=== PATIENT | female | born 1985 | race American Indian/Alaskan Native ===

== ENCOUNTER 2017-09-13 15:04 | Emergency (ER) | payer SELFPAY ==
[2017-09-13] MEDS ORDERED: LIDOCAINE VISCOUS 2% PO ONE (21:42)
[2017-09-13] MEDS ORDERED: NACL 0.9% 1000 ML 1,000 ML IV ONE (21:50)
[2017-09-13] MEDS ORDERED: TORADOL IM ONE (21:50)
[2017-09-13] MEDS ORDERED: CLEOCIN 600 MG/50 mL 600 MG/50 ML BAG IV ONE ×2 (21:50→21:51)
[2017-09-13] MEDS ORDERED: DECADRON IV ONE (21:51)
[2017-09-13 22:27] LABS: Hematocrit 37.5 % (30.3-42.9); Hemoglobin 12.9 gm/dl (10.1-14.3); Mean Corpuscular HGB Conc 34 % (30-34); Mean Corpuscular Hemoglobin 32 pg (28-32); Mean Corpuscular Volume 94 fl (79-97); Platelet Count 345 K/mm3 (140-440); Red Blood Count 3.98 M/mm3 (3.65-5.03); Red Cell Distribution Width 12.8 % (13.2-15.2)
--- NOTE | 2017-09-13 22:29 | Emergency Department Report ---
ED ENT HPI - General Chief complaint: Sore Throat Stated complaint: SORETHROAT, EAR PAIN, DIFF SWALLOWING Time Seen by Provider: 09/13/17 21:41 Source: patient Mode of arrival: Ambulatory Limitations: No Limitations - History of Present Illness Initial comments: This is a 32-year-old female nontoxic, well nourished in appearance, no acute signs of distress presents to the ED with c/o of sore throat x3 days. Patient stated that now she developed right sided swelling of neck. Patient also stated has been having excessive saliva. Patient denies any hoarseness, fever, chills, nausea, vomiting, chest pain, shortness of breath, difficulty swallowing , difficulty breathing, headache, stiff neck. Patient denies any allergies or past medical history. MD complaint: sore throat -: days(s) (3) Location: throat Severity: mild Severity scale (0 -10): 8 Quality: aching Consistency: constant Improves with: none Worsens with: swallowing Associated Symptoms: pain with swallowing, sore throat. denies: fever, cough, gum swelling, toothache, tinnitus, hearing loss, discharge from ear, rhinorrhea - Related Data Previous Rx's Medication Instructions Recorded Last Taken Type Cyclobenzaprine HCl [Flexeril 5 MG 5 mg PO TID #20 tab 06/07/16 Unknown Rx TAB] Ibuprofen [Motrin 600 MG tab] 600 mg PO Q8H PRN #30 tablet 06/07/16 Unknown Rx Clindamycin [Clindamycin CAP] 300 mg PO Q8H 7 Days cap 09/14/17 Unknown Rx Ibuprofen [Motrin] 600 mg PO Q8H PRN #30 tablet 09/14/17 Unknown Rx Nystas/Diphen/Xyl Visc/Mylanta 30 ml MM Q4H PRN 10 Days ml 09/14/17 Unknown Rx [Magic Mouthwash] predniSONE [Deltasone] 40 mg PO QDAY 5 Days tab 09/14/17 Unknown Rx Allergies Allergy/AdvReac Type Severity Reaction Status Date / Time No Known Allergies Allergy Verified 10/24/14 09:41 ED Dental HPI - General Chief complaint: Sore Throat Stated complaint: SORETHROAT, EAR PAIN, DIFF SWALLOWING Time Seen by Provider: 09/13/17 21:41 Source: patient Mode of arrival: Ambulatory Limitations: No Limitations - Related Data Previous Rx's Medication Instructions Recorded Last Taken Type Cyclobenzaprine HCl [Flexeril 5 MG 5 mg PO TID #20 tab 06/07/16 Unknown Rx TAB] Ibuprofen [Motrin 600 MG tab] 600 mg PO Q8H PRN #30 tablet 06/07/16 Unknown Rx Clindamycin [Clindamycin CAP] 300 mg PO Q8H 7 Days cap 09/14/17 Unknown Rx Ibuprofen [Motrin] 600 mg PO Q8H PRN #30 tablet 09/14/17 Unknown Rx Nystas/Diphen/Xyl Visc/Mylanta 30 ml MM Q4H PRN 10 Days ml 09/14/17 Unknown Rx [Magic Mouthwash] predniSONE [Deltasone] 40 mg PO QDAY 5 Days tab 09/14/17 Unknown Rx Allergies Allergy/AdvReac Type Severity Reaction Status Date / Time No Known Allergies Allergy Verified 10/24/14 09:41 ED Review of Systems ROS: Stated complaint: SORETHROAT, EAR PAIN, DIFF SWALLOWING Other details as noted in HPI Constitutional: denies: chills, fever Eyes: denies: eye pain, eye discharge, vision change ENT: throat pain. denies: ear pain Respiratory: denies: cough, shortness of breath, wheezing Cardiovascular: denies: chest pain, palpitations Endocrine: no symptoms reported Gastrointestinal: denies: abdominal pain, nausea, diarrhea Genitourinary: denies: urgency, dysuria, discharge Musculoskeletal: denies: back pain, joint swelling, arthralgia Skin: denies: rash, lesions Neurological: denies: headache, weakness, paresthesias Psychiatric: denies: anxiety, depression Hematological/Lymphatic: denies: easy bleeding, easy bruising ED Past Medical Hx - Past Medical History Hx Hypertension: No Hx Congestive Heart Failure: No Hx Diabetes: No Hx Deep Vein Thrombosis: No Hx Renal Disease: No Hx Sickle Cell Disease: No Hx Seizures: No Hx Asthma: No Hx COPD: No Hx HIV: No Additional medical history: vaginal delivery 03-29-2014 - Surgical History Additional Surgical History: Fallopian Tube Left Side Removal. - Social History Smoking Status: Never Smoker Substance Use Type: None - Medications Home Medications: Home Medications Medication Instructions Recorded Confirmed Last Taken Type Cyclobenzaprine HCl [Flexeril 5 MG 5 mg PO TID #20 tab 06/07/16 Unknown Rx TAB] Ibuprofen [Motrin 600 MG tab] 600 mg PO Q8H PRN #30 tablet 06/07/16 Unknown Rx Clindamycin [Clindamycin CAP] 300 mg PO Q8H 7 Days cap 09/14/17 Unknown Rx Ibuprofen [Motrin] 600 mg PO Q8H PRN #30 tablet 09/14/17 Unknown Rx Nystas/Diphen/Xyl Visc/Mylanta 30 ml MM Q4H PRN 10 Days ml 09/14/17 Unknown Rx [Magic Mouthwash] predniSONE [Deltasone] 40 mg PO QDAY 5 Days tab 09/14/17 Unknown Rx ED Physical Exam - General Limitations: No Limitations General appearance: alert, in no apparent distress - Head Head exam: Present: atraumatic, normocephalic, normal inspection - Eye Eye exam: Present: normal appearance, PERRL, EOMI. Absent: scleral icterus, conjunctival injection, nystagmus, periorbital swelling, periorbital tenderness Pupils: Present: normal accommodation - ENT ENT exam: Present: mucous membranes moist, TM's normal bilaterally, normal external ear exam - Expanded ENT Exam Expanded Ear exam: Present: normal external inspection Mouth exam: Present: normal external inspection, tongue normal. Absent: drooling, trismus, muffled voice, tongue elevation, laceration Teeth exam: Present: normal inspection Throat exam: Positive: tonsillar erythema, tonsillomegaly (3+), tonsillar exudate, other (Uvula midline. ). Negative: R peritonsillar mass, L peritonsillar mass - Neck Neck exam: Present: normal inspection, full ROM, lymphadenopathy (right tonsilar lymphadenopathy). Absent: tenderness, meningismus, thyromegaly - Respiratory Respiratory exam: Present: normal lung sounds bilaterally. Absent: respiratory distress, wheezes, rales, rhonchi, stridor, chest wall tenderness, accessory muscle use, decreased breath sounds, prolonged expiratory - Cardiovascular Cardiovascular Exam: Present: regular rate, normal rhythm, normal heart sounds. Absent: irregular rhythm, systolic murmur, diastolic murmur, rubs, gallop - GI/Abdominal GI/Abdominal exam: Present: soft, normal bowel sounds. Absent: distended, tenderness, guarding, rebound, rigid, diminished bowel sounds - Rectal Rectal exam: Present: deferred - Extremities Exam Extremities exam: Present: normal inspection, full ROM, normal capillary refill. Absent: tenderness, pedal edema, joint swelling, calf tenderness - Back Exam Back exam: Present: normal inspection, full ROM. Absent: tenderness, CVA tenderness (R), CVA tenderness (L), muscle spasm, paraspinal tenderness, vertebral tenderness, rash noted - Neurological Exam Neurological exam: Present: alert, oriented X3, CN II-XII intact, normal gait, reflexes normal - Psychiatric Psychiatric exam: Present: normal affect, normal mood - Skin Skin exam: Present: warm, dry, intact, normal color. Absent: rash ED Course Vital Signs 09/13/17 09/13/17 09/14/17 20:51 20:59 01:33 Temperature 98.1 F 98.1 F 98.7 F Pulse Rate 94 H 94 H 87 Respiratory 18 20 Rate Blood Pressure 129/70 Blood Pressure 129/70 132/82 [Right] O2 Sat by Pulse 100 99 100 Oximetry - Reevaluation(s) Reevaluation #1: 09/13/17 22:29 Patient is speaking in full sentences with no signs of distress noted. Reevaluation #2: 09/14/17 01:25 Patient stated is feeling much better and patient tolerated PO challange well with no signs of distress. - Consultations Consultation #1: 09/14/17 01:24 Dr. Winters has been consulted about patient history, phyiscal exam, and labs/ imaging findings and agrees to the discharge plan of care with follow-up. ED Medical Decision Making - Lab Data Result diagrams: 09/13/17 22:05 09/13/17 22:05 - Medical Decision Making This is a 32-year-old female that presents with tonsillitis with exudate and hypokalemia. Patient is stable and was examined by me. Labs obtained were within normal limits with low potassium gap of 25. As per Dr. Winters, which has been consulted about patient history, phyiscal exam, and labs/imaging findings and agrees to the discharge plan of care with follow-up. CT of neck with contrast has been obtained to rule out tonsillar abscess and dictated by radiologist with impression of diffuse inflammatory changes in the right tonsillar region. No evidence of airway compromise and lymphadenopathy. Patient is notified of CT results with no present noted by the patient. Patient received clindamycin 600 mg IV, 1 L of normal saline, and 10 mg of Decadron IV. Patient stated she feels much better. A by mouth challenge has been obtained and patient tolerated well with no signs of any distress. Patient is discharged with clindamycin and prednisone. Patient received 20 meq potassium chloride in the ED. Patient was instructed Follow-up with a primary care doctor in 24 hours or if symptoms worsen and continue return to emergency room as soon as possible. At time time of discharge, the patient does not seem toxic or ill in appearance. No acute signs of distress noted. Patient agrees to discharge treatment plan of care. No further questions noted by the patient. Critical care attestation.: If time is entered above; I have spent that time in minutes in the direct care of this critically ill patient, excluding procedure time. ED Disposition Clinical Impression: Tonsillitis with exudate, Hypokalemia Disposition: TO HOME OR SELFCARE Is pt being admited?: No Does the pt Need Aspirin: No Condition: Stable Instructions: Clindamycin (By mouth), Hypokalemia (ED), Tonsillitis (ED), Prednisone (By mouth) Additional Instructions: Follow-up with a primary care doctor in 24 hours or if symptoms worsen and continue return to emergency room as soon as possible. Prescriptions: Clindamycin [Clindamycin CAP] 300 mg PO Q8H 7 Days cap Ibuprofen [Motrin] 600 mg PO Q8H PRN #30 tablet PRN Reason: Pain Nystas/Diphen/Xyl Visc/Mylanta [Magic Mouthwash] 30 ml MM Q4H PRN 10 Days ml PRN Reason: Sore Throat predniSONE [Deltasone] 40 mg PO QDAY 5 Days tab Referrals: [facility] [Outside] - 3-5 Days [facility] [Outside] - 3-5 Days PRIMARY CAREMD [Primary Care Provider] - 24 Hours LOIDA MCGEE MD [Staff Physician] - 24 Hours Forms: Work/School Release Form(ED)
[2017-09-13 22:51] LABS: BUN/Creatinine Ratio 12; Blood Urea Nitrogen 6 mg/dL (7-17); Hemolysis Index 3
[2017-09-13 22:52] LABS: Eosinophils % (Manual) 0 % (0.0-4.3); Total Cells Counted 100
[2017-09-13 22:53] LABS: Basophils % (Manual) 0 % (0.0-1.8)
[2017-09-13 22:54] LABS: RBC Morphology Normal
[2017-09-13] MEDS ORDERED: POTASSIUM CHLORIDE PO ONE (23:13)
[2017-09-13 23:42] LABS: Bacteria,Urine 1+ /HPF (Negative); Bilirubin,Urine SM (Negative); Blood,Urine NEG (Negative); Color,Urine Amber (Yellow); Hyaline Casts,Urine 1 /LPF; Mucus,Urine FEW /HPF; Nitrite,Urine NEG (Negative)
[2017-09-14 00:02] LABS: Ictotest,Urine Negative (Negative)
--- NOTE | 2017-09-14 00:41 | Cat Scan Report ---
FINAL REPORT EXAM: CT NECK W CON HISTORY: tonsillitis r/u tonsilar abscess rt side throat pain/swallowing TECHNIQUE: Routine axial imaging was obtained of the soft tissues of the neck following the intravenous injection of 100 cc of Omnipaque 300. Sagittal and coronal reconstructions were reviewed. FINDINGS: There are diffuse inflammatory changes involving the right tonsillar pillar with heterogeneous enhancement measuring 2.3 cm x 1.7 cm. The inflammatory process extends 4.2 cm cephalad caudally with face mid of the right piriform sinus. The low-attenuation areas represent phlegmonous changes. A discrete walled-off abscess is not seen. There is no evidence of airway compromise. There are enlarged lymph nodes in both internal jugular chains the largest on the right side measuring 2.6 cm x 1.6 cm in axial dimension. Benign-appearing shoddy lymph nodes are seen in the spinal accessory and submandibular chains bilaterally. The vascular structures enhance normally. The thyroid gland appears normal. The retropharyngeal space is unremarkable. Lung apices are clear. The skeletal structures reveal disc degeneration at the C5-C6 level. Along the skullbase the visualized sinuses are clear. The mastoid air cells are well pneumatized. IMPRESSION: Diffuse inflammatory changes with phlegmonous changes involving the right tonsil measuring 2.3 cm x 1.7 cm x 4.2 cm as described. No evidence of airway compromise. Lymphadenopathy as described. Degenerative arthritic changes at the C5-6 level in the cervical spine
[2017-09-14 01:33] VITALS: BP 132/82
== END 2017-09-14 01:37 | disposition home or self-care (01) ==
LOC: ED 15:04
DX: J03.90 Acute tonsillitis, unspecified (principal); E87.6 Hypokalemia
CPT/HCPCS: 36415; 70491; 80048; 81001; 82140; 82550; 84703; 85007; 85025; 87040; 87116; 87430; 96361; 96365; 96372; 96375; 99284; J1100; J1885; J7030; Q9967

== ENCOUNTER 2020-01-08 12:18 | Emergency (ER) | payer SELFPAY ==
[2020-01-08 12:23] VITALS: BP 139/83
[2020-01-08] MEDS ORDERED: PENICILLIN G BENZATHINE 1.2 MILLION UNIT/2 ML INJ IM ONE (13:51)
[2020-01-08] MEDS ORDERED: dexAMETHasone 4 MG/ML VIAL IM ONE (13:51)
--- NOTE | 2020-01-08 13:51 | Emergency Department Report ---
Minor Respiratory - HPI Chief Complaint: Sore Throat Stated Complaint: POSS STREP THROAT/MUCUS/PAIN Time Seen by Provider: 01/08/20 13:50 Duration: 4 Days Pain Location: Throat Severity: moderate Minor Respiratory: Yes Sore Throat, Yes Able to Tolerate Fluids, Yes Ear Pain, No Rhinorrhea, No Cough, No Sick Contacts, No Hemoptysis, No Chest Pain, No Shortness of Breath, No Fever Other History: Patient is a 34-year-old -[place] female comes to the ER today with a sore throat. She has exudates bilaterally. There is no abscess. She is controlling secretions. She states that the pain starts in her throat and radiates to her ear. Patient has no fever. She denies chills. She denies cough. She denies shortness of breath. She has no known ill contacts. Ambulatory and comes to the ER via private vehicle ED Review of Systems ROS: Stated complaint: POSS STREP THROAT/MUCUS/PAIN Other details as noted in HPI Comment: All other systems reviewed and negative ED Past Medical Hx - Past Medical History Hx Hypertension: No Hx Congestive Heart Failure: No Hx Diabetes: No Hx Deep Vein Thrombosis: No Hx Renal Disease: No Hx Sickle Cell Disease: No Hx Seizures: No Hx Asthma: No Hx COPD: No Hx HIV: No Additional medical history: vaginal delivery 03-29-2014 - Surgical History Additional Surgical History: Fallopian Tube Left Side Removal. - Family History Family history: no significant - Social History Smoking Status: Current Every Day Smoker Substance Use Type: None - Medications Home Medications: Home Medications Medication Instructions Recorded Confirmed Last Taken Type Amoxicillin [Trimox CAP] 500 mg PO TID #20 capsule 01/08/20 Unknown Rx Minor Respiratory Exam - Exam General: Vital signs noted. No distress. Alert and acting appropriately. HEENT: Yes Pharyngeal Erythema, Yes Moist Mucous Membranes, No Pharyngeal Exudates, No Rhinorrhea, No Conjuctival Injection, No Frontal Tenderness, No Maxillary Tenderness Ear: Neither TM Bulge, Neither TM Erythema, Neither EAC Pain, Neither EAC Discharge Neck: Yes Supple, No Adenopathy Lungs: Yes Good Air Exchange, No Wheezes, No Ronchi, No Stridor, No Cough, No Labored Respirations, No Retractions, No Use of Accessory Muscles, No Other Abnormal Lung Sounds Heart: Yes Regular (90 on exam), No Murmur Abdomen: Yes Normal Bowel Sounds, No Tenderness, No Peritoneal Signs Skin: No Rash, No Edema Neurologic: Alert and oriented, no deficits. Musculoskeletal: Unremarkable. ED Course Vital Signs 01/08/20 12:22 Temperature 98.3 F Pulse Rate 117 H Respiratory 18 Rate Blood Pressure 139/83 O2 Sat by Pulse 97 Oximetry ED Medical Decision Making - Medical Decision Making Vital Signs 01/08/20 12:22 Temperature 98.3 F Pulse Rate 117 H Respiratory 18 Rate Blood Pressure 139/83 O2 Sat by Pulse 97 Oximetry Lab Results 01/08/20 Range/Units Unknown Group A Strep Rapid Positive A (Negative) Strep noted to be positive. Patient given Bicillin and Decadron in the ER. Patient being discharged home with PCP follow-up. Patient verbalizes understanding of the need to follow-up. On discharge patient controlling secretions, ABCs intact, and patient taking p.o. - Differential Diagnosis ro strep Critical care attestation.: If time is entered above; I have spent that time in minutes in the direct care of this critically ill patient, excluding procedure time. ED Disposition Clinical Impression: Strep pharyngitis Disposition: - TO HOME OR SELFCARE Is pt being admited?: No Does the pt Need Aspirin: No Condition: Stable Instructions: Strep Throat (ED) Additional Instructions: med as ordered today follow up with pcp for recheck in 48 hours stay well hydrated motrin or tylenol for pain or fever good handwashing Prescriptions: Amoxicillin [Trimox CAP] 500 mg PO TID #20 capsule Referrals: HERVE PIERRE MD [Staff Physician] - 3-5 Days Time of Disposition: 14:17
[2020-01-08] MEDS ORDERED: ACETAMINOPHEN 500 MG TAB PO ONE (13:56)
== END 2020-01-08 14:58 | disposition home or self-care (01) ==
LOC: ED 12:18
DX: J02.0 Streptococcal pharyngitis (principal); F17.200 Nicotine dependence, unspecified, uncomplicated; Z98.890 Other specified postprocedural states; Z79.2 Long term (current) use of antibiotics
CPT/HCPCS: 87430; 96372; 99283; J0561; J1100

== ENCOUNTER 2020-04-26 15:12 | Emergency (ER) | payer MEDICAID, OTHER ==
[2020-04-26 16:27] VITALS: BP 109/70
[2020-04-26] MEDS ORDERED: dexAMETHasone 20 MG/5 ML VIAL IM ONE (17:05)
--- NOTE | 2020-04-26 17:05 | Event Note ---
ED Screening Note Date of service: 04/26/20 Time: 17:03 ED Screening Note: 34-year-old female presents with throat pain with difficulty swallowing stating that every time she eats she is throwing up her foods. This initial assessment/diagnostic orders/clinical plan/treatment(s) is/are subject to change based on patients health status, clinical progression and re- assessment by fellow clinical providers in the ED. Further treatment and workup at subsequent clinical providers discretion. Patient/guardian urged not to elope from the ED as their condition may be serious if not clinically assessed and managed. Initial orders include: Decadron IM, rapid strep sent Magic mouthwash
[2020-04-26] MEDS ORDERED: MAGIC MOUTHWASH 30ML PO ONE (17:06)
--- NOTE | 2020-04-26 19:35 | Emergency Department Report ---
ED General Adult HPI - General Chief complaint: Sore Throat Stated complaint: SORE THROAT/V/N/STOPPED UP NOSE Time Seen by Provider: 04/26/20 17:03 Source: patient Mode of arrival: Ambulatory Limitations: No Limitations - History of Present Illness Initial comments: 34-year-old -[place] female patient without significant prior medical history presents with complaints of sore throat, nasal congestion, and nausea and vomiting x2 days. She rates her current sore throat as a 10/10 in severity and states she is unable to tolerate foods and is vomiting due to the pain. She denies any abdominal pain, cough, shortness of breath, chest pain, rash/lesions, or recent known sick contacts. Patient was seen here 01/08/2020 with similar symptoms and has strep at that time. She states her symptoms feel the same as before. -: Sudden Severity scale (0 -10): 10 - Related Data Previous Rx's Medication Instructions Recorded Last Taken Type Amoxicillin [Trimox CAP] 500 mg PO TID #20 capsule 01/08/20 Unknown Rx Azithromycin Oral Liqd [Zithromax 250 mg PO QDAY 5 Days #1 bottle 04/26/20 Unknown Rx 200 MG/5 ML ORAL LIQ] Ibuprofen Oral Liqd [Motrin Oral 600 mg PO TID PRN #1 bottle 04/26/20 Unknown Rx Liq 100 mg/5 ml] Loratadine [Claritin] 10 mg PO QAM PRN #1 bottle 04/26/20 Unknown Rx Allergies Allergy/AdvReac Type Severity Reaction Status Date / Time Unable to Assess Allergy Unverified 04/26/20 16:24 ED Review of Systems ROS: Stated complaint: SORE THROAT/V/N/STOPPED UP NOSE Other details as noted in HPI Constitutional: denies: chills, diaphoresis, fever, malaise, weakness Eyes: denies: eye pain, eye discharge, vision change ENT: throat pain. denies: ear pain Respiratory: denies: cough, shortness of breath Cardiovascular: denies: chest pain Gastrointestinal: vomiting. denies: abdominal pain, nausea, diarrhea, constipation, hematemesis, melena, hematochezia Genitourinary: denies: urgency, dysuria Skin: denies: rash, lesions, change in color Neurological: denies: headache Hematological/Lymphatic: swollen glands ED Past Medical Hx - Past Medical History Hx Hypertension: No Hx Congestive Heart Failure: No Hx Diabetes: No Hx Deep Vein Thrombosis: No Hx Renal Disease: No Hx Sickle Cell Disease: No Hx Seizures: No Hx Asthma: No Hx COPD: No Hx HIV: No Additional medical history: vaginal delivery 03-29-2014 - Surgical History Additional Surgical History: Fallopian Tube Left Side Removal. - Social History Smoking Status: Never Smoker Substance Use Type: None - Medications Home Medications: Home Medications Medication Instructions Recorded Confirmed Last Taken Type Amoxicillin [Trimox CAP] 500 mg PO TID #20 capsule 01/08/20 Unknown Rx Azithromycin Oral Liqd [Zithromax 250 mg PO QDAY 5 Days #1 bottle 04/26/20 Unknown Rx 200 MG/5 ML ORAL LIQ] Ibuprofen Oral Liqd [Motrin Oral 600 mg PO TID PRN #1 bottle 04/26/20 Unknown Rx Liq 100 mg/5 ml] Loratadine [Claritin] 10 mg PO QAM PRN #1 bottle 04/26/20 Unknown Rx ED Physical Exam - General Limitations: No Limitations General appearance: alert, in no apparent distress - Head Head exam: Present: atraumatic, normocephalic - Eye Eye exam: Present: normal appearance. Absent: scleral icterus - Expanded ENT Exam Expanded Mouth exam: Absent: drooling, trismus, muffled voice Throat exam: Positive: tonsillar erythema. Negative: tonsillomegaly, tonsillar exudate - Neck Neck exam: Present: full ROM, lymphadenopathy (Mild tender anterior cervical lymphadenopathy noted). Absent: meningismus - Respiratory Respiratory exam: Present: normal lung sounds bilaterally. Absent: respiratory distress - Cardiovascular Cardiovascular Exam: Present: regular rate - GI/Abdominal GI/Abdominal exam: Present: soft, normal bowel sounds. Absent: distended, tenderness, guarding, rebound, rigid - Neurological Exam Neurological exam: Present: alert, oriented X3 - Psychiatric Psychiatric exam: Present: normal affect, normal mood - Skin Skin exam: Present: warm, dry, intact, normal color. Absent: rash, cyanosis, diaphoretic, petechiae, pallor, ecchymosis ED Course Vital Signs 04/26/20 16:24 Temperature 98.1 F Pulse Rate 90 Respiratory 16 Rate Blood Pressure 109/70 [Right] O2 Sat by Pulse 96 Oximetry ED Medical Decision Making - Lab Data Lab Results 04/26/20 Range/Units 17:06 Group A Strep Rapid Negative (Negative) - Radiology Data Patient here with sore throat x2 days. Rapid strep is negative. On exam she has bilateral tonsillar erythema and on 01/08/2020 she was seen here and had a positive strep at that time. Patient states symptoms are the same as before. No trismus, drooling, or palpitated voice noted. Given this, will treat empirically for strep pharyngitis. Patient states Amoxil did not seem to work very effectively last time, will send home with azithromycin. Recommend follow- up with PCP in 3 to 5 days. Discussed in great details strict return precautions with patient, she verbalizes understanding. Her vitals are normal, she is well-appearing, and stable for discharge home peer Critical care attestation.: If time is entered above; I have spent that time in minutes in the direct care of this critically ill patient, excluding procedure time. ED Disposition Clinical Impression: Acute bacterial pharyngitis Disposition: - TO HOME OR SELFCARE Is pt being admited?: No Condition: Stable Instructions: Strep Throat (ED) Prescriptions: Loratadine [Claritin] 10 mg PO QAM PRN #1 bottle PRN Reason: Nasal Congestion Ibuprofen Oral Liqd [Motrin Oral Liq 100 mg/5 ml] 600 mg PO TID PRN #1 bottle PRN Reason: pain Azithromycin Oral Liqd [Zithromax 200 MG/5 ML ORAL LIQ] 250 mg PO QDAY 5 Days #1 bottle Referrals: JENNI SALAS [Other] - 3-5 Days
[2020-04-26] MEDS ORDERED: IBUPROFEN ORAL LIQD 100 MG/5 ML ORAL.LIQD PO ONE (19:38)
[2020-04-26] MEDS ORDERED: ONDANSETRON 4 MG ODT TAB PO ONE (20:01)
== END 2020-04-26 20:05 | disposition home or self-care (01) ==
LOC: ED 15:12
DX: J02.8 Acute pharyngitis due to other specified organisms (principal); Z79.899 Other long term (current) drug therapy; Z90.79 Acquired absence of other genital organ(s)
CPT/HCPCS: 87116; 87430; 96372; 99283; J1100; Q0162

== ENCOUNTER 2020-12-01 11:54 | Emergency (ER) | payer OTHER ==
[2020-12-01 12:12] VITALS: BP 110/66
--- NOTE | 2020-12-01 12:53 | Emergency Department Report ---
Chief Complaint: Upper Respiratory Infection Stated Complaint: VOMITING/WHEEZING/SORE THROAT Time Seen by Provider: 12/01/20 12:50 - HPI History of Present Illness: 35-year-old immunocompetent female patient presents to the emergency department with complaints of nonproductive cough, nasal congestion, sneezing, and sore throat for 3 days. No known sick contacts. No current steroid antibiotic use. No recent travel. She has been taking [id number] Robitussin with limited relief. Denies fever, chills, headache, shortness of breath, chest pain, abdominal pain, neck stiffness, rash. Denies all other complaints at this time. - ROS Review of Systems: GENERAL: Negative for fever. ENT: Positive for nasal congestion, sneezing, sore throat. CARDIOVASCULAR: Negative for chest pain. PULMONARY: Positive for cough. GASTROINTESTINAL: Negative for abdominal pain. MUSCULOSKELETAL: Negative for back pain. NEUROLOGICAL: Negative for headache. INTEGUMENTARY: Negative for rash. - Exam Vital Signs: Vital Signs 12/01/20 12:09 Temperature 98.8 F Pulse Rate 93 H Respiratory 16 Rate Blood Pressure 110/66 O2 Sat by Pulse 98 Oximetry Physical Exam: General: Awake and alert. No acute distress. Head: Atraumatic, normocephalic. Eyes: EOMI. Pupils are equal and round. Normal sclera and conjunctiva. ENT: Clear rhinorrhea. Oral mucosa is moist. Normal pharyngeal exam. Neck: Supple. No lymphadenopathy. Pulmonary: No respiratory distress. Clear to auscultation bilaterally. Cardiac: Regular rate and rhythm. Pulses are palpable and equal bilaterally. No lower extremity cyanosis or edema. Skin: Warm and dry. No rashes. Abdomen: Soft, non-tender, non-protuberant. No guarding, rigidity, or rebound. Bowel sounds are normal. No organomegaly or masses noted. Back: Normal alignment. No CVA tenderness. Extremities: Symmetrical. Full range of motion intact. Neurological: Alert and oriented, appropriately interactive, no focal deficits. Psych: Cooperative. Appropriate mood and affect. Speech is evenly metered. Thoughts are logically construed. MSE screening note: Focused history and physical exam performed. Due to findings the following was ordered: ED Medical Decision Making - Medical Decision Making Patient presents emergency department with complaints of cough, nasal congestion, sneezing, sore throat. She is afebrile. Vital signs are stable. No respiratory distress, no hypoxia. History and exam findings are most suggestive of common cold. No clinical indication for further work-up on an emergent basis at this time. Patient will be discharged home with symptomatic treatment and referred to local primary care provider for close outpatient follow-up. Patient expressed understanding and is agreeable to plan of care. Disease transmission precautions discussed. Strict return precautions provided. History, exam, diagnostic testing, and current condition do not suggest worrisome pathology to warrant further testing, continued ED treatment, admission, or surgical evaluation at this point. Given the low probability of a significant medical illness, it would be more likely to result in harm than benefit to perform further testing at this stage. Discussed findings, presumptive diagnosis, need for follow-up and specific signs/symptoms that should prompt immediate return to the emergency department. Instructions were explained in detail to the patient in addition to giving written discharge information. Patient expressed understanding and was given the opportunity to ask questions, all of which were satisfactorily answered prior to discharge home. ED Disposition for MSE Clinical Impression: Acute nasopharyngitis Disposition: MED SCREENING EXAM-LEFT Is pt being admited?: No Does the pt Need Aspirin: No Condition: Stable Instructions: Upper Respiratory Infection, Adult Additional Instructions: Take Bromfed as directed for cough/cold symptoms. Honey is an excellent natural cough suppressant. Rest. Drink plenty fluids. Wash hands frequently to prevent disease transmission. Do not share food or drinks with others. Follow-up with Dr. Santamaria, primary care provider, this week. Call tomorrow to schedule an appointment. Return to the emergency department immediately for new or worsening symptoms. Prescriptions: Brompheniramine/Pseudoephed/Dm [Bromfed Dm Cough Syrup] 10 ml PO Q6H #1 bottle Referrals: HERVE SANTAMARIA MD [Staff Physician] - 3-5 Days Time of Disposition: 12:53
== END 2020-12-01 13:00 | disposition left against medical advice (07) ==
LOC: ED 11:54
DX: J02.9 Acute pharyngitis, unspecified (principal); Z53.21 Procedure and treatment not carried out due to patient leaving prior to being seen by health care provider

== ENCOUNTER 2021-02-26 19:26 | Emergency (ER) | payer OTHER ==
[2021-02-26 19:44] VITALS: BP 109/70
[2021-02-26] MEDS ORDERED: HYDROcodone/ACETAMINOPHEN 5-325 MG TAB PO STA (20:38)
--- NOTE | 2021-02-26 20:45 | Emergency Department Report ---
ED Lower Extremity HPI - General Chief Complaint: Extremity Injury, Lower Stated Complaint: LEFT LEG INJURY Time Seen by Provider: 02/26/21 20:36 Source: patient Mode of arrival: Wheelchair Limitations: Physical Limitation - History of Present Illness Initial Comments: 35-year-old female emerge department complaining of pain to the left knee which occurred after she accidentally ran into the couch striking the left knee causing it to twist internally followed by a pop swelling and pain which is continued to progressively worsening since the onset yesterday. She reports no numbness or tingling the pain is dull and throbbing worse with palpation range of motion and weightbearing. MD Complaint: knee injury -: Sudden Injury: Knee: Left Place: home Associated Symptoms: snap/pop sensation, swelling - Related Data Previous Rx's Medication Instructions Recorded Last Taken Type Amoxicillin [Trimox CAP] 500 mg PO TID #20 capsule 01/08/20 Unknown Rx Azithromycin Oral Liqd [Zithromax 250 mg PO QDAY 5 Days #1 bottle 04/26/20 Unknown Rx 200 MG/5 ML ORAL LIQ] Ibuprofen Oral Liqd [Motrin Oral 600 mg PO TID PRN #1 bottle 04/26/20 Unknown Rx Liq 100 mg/5 ml] Loratadine [Claritin] 10 mg PO QAM PRN #1 bottle 04/26/20 Unknown Rx Brompheniramine/Pseudoephed/Dm 10 ml PO Q6H #1 bottle 12/01/20 Unknown Rx [Bromfed Dm Cough Syrup] Allergies Allergy/AdvReac Type Severity Reaction Status Date / Time No Known Allergies Allergy Verified 02/26/21 19:44 ED Review of Systems ROS: Stated complaint: LEFT LEG INJURY Other details as noted in HPI Comment: All other systems reviewed and negative ED Past Medical Hx - Past Medical History Previous Medical History?: No Hx Hypertension: No Hx Congestive Heart Failure: No Hx Diabetes: No Hx Deep Vein Thrombosis: No Hx Renal Disease: No Hx Sickle Cell Disease: No Hx Seizures: No Hx Asthma: No Hx COPD: No Hx HIV: No Additional medical history: vaginal delivery 03-29-2014 - Surgical History Past Surgical History?: Yes Additional Surgical History: Fallopian Tube Left Side Removal. - Social History Smoking Status: Never Smoker Substance Use Type: None - Medications Home Medications: Home Medications Medication Instructions Recorded Confirmed Last Taken Type Amoxicillin [Trimox CAP] 500 mg PO TID #20 capsule 01/08/20 Unknown Rx Azithromycin Oral Liqd [Zithromax 250 mg PO QDAY 5 Days #1 bottle 04/26/20 Unknown Rx 200 MG/5 ML ORAL LIQ] Ibuprofen Oral Liqd [Motrin Oral 600 mg PO TID PRN #1 bottle 04/26/20 Unknown Rx Liq 100 mg/5 ml] Loratadine [Claritin] 10 mg PO QAM PRN #1 bottle 04/26/20 Unknown Rx Brompheniramine/Pseudoephed/Dm 10 ml PO Q6H #1 bottle 12/01/20 Unknown Rx [Bromfed Dm Cough Syrup] ED Physical Exam - General Limitations: Physical Limitation General appearance: alert, in no apparent distress - Head Head exam: Present: atraumatic, normocephalic - Eye Eye exam: Present: normal appearance, PERRL, EOMI Pupils: Present: normal accommodation - ENT ENT exam: Present: normal exam, normal orophraynx, mucous membranes moist, TM's normal bilaterally - Neck Neck exam: Present: normal inspection, full ROM - Respiratory Respiratory exam: Present: normal lung sounds bilaterally. Absent: respiratory distress, wheezes, rales, chest wall tenderness, accessory muscle use - Cardiovascular Cardiovascular Exam: Present: regular rate, normal rhythm. Absent: systolic murmur, diastolic murmur, rubs, gallop - GI/Abdominal GI/Abdominal exam: Present: soft, normal bowel sounds - Extremities Exam Extremities exam: Present: normal inspection, tenderness, joint swelling - Expanded Lower Extremity Exam Left Upper Leg exam: Present: normal inspection Knee exam: Present: tenderness, swelling, pain w/ pronation/supination, pain/laxity with valgus. Absent: laceration, ecchymosis, deformity Lower Leg exam: Present: normal inspection Neuro vascular tendon exam: Present: no vascular compromise. Absent: abnormal cap refill - Back Exam Back exam: Present: normal inspection - Neurological Exam Neurological exam: Present: alert, oriented X3 - Psychiatric Psychiatric exam: Present: normal affect, normal mood - Skin Skin exam: Present: warm, dry, intact, normal color. Absent: rash ED Course Vital Signs 02/26/21 19:41 Temperature 99.2 F Pulse Rate 90 Respiratory 22 Rate Blood Pressure 109/70 O2 Sat by Pulse 98 Oximetry - Orthopedic Splinting/Casting Injury #2 Side: left Lower Extremity Injury Location: lower leg Lower Extremity Immobilizer: knee immobilizer Other Orthopedic Equipment: crutches ED Lower Extremity MDM - Radiology Data Radiology results: report reviewed [facility] [address] [place] [address] XRay Report Signed Patient: BARBARA LATHAM MR#: [id number] : 1985 Acct:[id number] Age/Sex: 35 / F ADM Date: 02/26/21 Loc: ED Attending Dr: Ordering Physician: SHANI MARTE Date of Service: 02/26/21 Procedure(s): XR knee 3V LT Accession Number(s): [id number] cc: SHANI MARTE Fluoro Time In Minutes: LEFT KNEE 3 VIEWS INDICATION / CLINICAL INFORMATION: injury COMPARISON: None available. FINDINGS: BONES / JOINT(S): No acute fracture or subluxation. No significant arthritis. SOFT TISSUES: No significant abnormality. ADDITIONAL FINDINGS: None. Signer Name: Bernabe Kraft MD Signed: 02/26/2021 8:38 PM Workstation Name: [id number] Transcribed By: ES Dictated By: Bernabe Kraft MD Electronically Authenticated By: Bernabe Kraft MD Signed Date/Time: 02/26/212037 DD/ 35 TD/TT: Print Cancel - Medical Decision Making 35-year-old F Swazi female [facility] emerge department with knee pain suspicious for meniscus/medial collateral ligament damage/internal derangement. She is able to flex and extend her knee although somewhat limited by pain. Appreciated but doubt a tibial plateau fracture, septic arthritis, other acute unstable fracture or significant neurovascular compromise. X-ray was obtained and was negative for any acute process. She had no evidence of any compartment syndrome placed in a knee immobilizer and crutches and advised to follow-up with orthopedic for reevaluation and definitive treatment as an MRI may be necessary Critical care attestation.: If time is entered above; I have spent that time in minutes in the direct care of this critically ill patient, excluding procedure time. ED Disposition Clinical Impression: Internal derangement of left knee Disposition: DC-01 TO HOME OR SELFCARE Is pt being admited?: No Does the pt Need Aspirin: No Condition: Stable Instructions: Acute Knee Pain, Adult, Meniscus Tear, How to Use a Knee Immobilizer, Knee Effusion, [id number] Referrals: PRIMARY CARE, [Primary Care Provider] - 3-5 Days DOMINIQUE WHALEN MD [Staff Physician] - 3-5 Days
== END 2021-02-26 21:25 | disposition home or self-care (01) ==
LOC: ED 19:26
DX: M23.8X2 Other internal derangements of left knee (principal); Z98.890 Other specified postprocedural states
CPT/HCPCS: 99283

== ENCOUNTER 2021-06-03 09:47 | Day surgery (SDC) | payer OTHER ==
[~2021-06-03 09:47] MED LIST: ACETAMINOPHEN 500 MG TAB PO SCH; CELECOXIB 200 MG CAP PO NR; GABAPENTIN 300 MG CAP PO NR; LACTATED RINGERS 1,000 ML IV SCH; MIDAZOLAM 2 MG/2 ML INJ IV NR; SCOPOLAMINE TRANSDERMAL PATCH 72 HR TD NR; SODIUM CHLORIDE 0.9% IRRIG SOLN 2000 ML IR ONE; methylPREDNISolone ACETATE 40 MG/1 ML INJ INTRA-ARTI ONE
--- NOTE | 2021-06-03 10:31 | Anesthesia Consultation ---
Anesthesia Consult and Med Hx Date of service: 06/03/21 - Airway Anesthetic Teeth Evaluation: Good, Partials Mental/Hyoid Distance: Adequate Mallampati Class: Class II Intubation Access Assessment: Good - Pulmonary Exam CTA: Yes - Cardiac Exam Cardiac Exam: RRR - Pre-Operative Health Status ASA Pre-Surgery Classification: ASA1 Proposed Anesthetic Plan: General - Pulmonary Hx Smoking: No Hx Asthma: No COPD: No Hx Pneumonia: No Hx Sleep Apnea: No (MILLI PRE SCREEN NEGATIVE) - Cardiovascular System Hx Hypertension: No - Central Nervous System Hx Seizures: No Hx Psychiatric Problems: No - Endocrine Hx Renal Disease: No Hx End Stage Renal Disease: No Hx Hypothyroidism: No Hx Hyperthyroidism: No - Hematic Hx Anemia: No Hx Sickle Cell Disease: No - Other Systems Hx Alcohol Use: No Hx Cancer: No
--- NOTE | 2021-06-03 10:31 | Anesthesia Day of Surgery ---
Anesthesia Day of Surgery - Day of Surgery Patient Examined: Yes Patient H&P Reviewed: Yes Patient is NPO: Yes
[2021-06-03] MEDS ORDERED: methylPREDNISolone ACETATE 40 MG/1 ML INJ ONE (11:08)
[2021-06-03] MEDS ORDERED: BUPIVACAINE/PF (0.5%) 5 MG/1 ML 30 ML VIAL INFILTRATI ONE (11:08)
[2021-06-03] MEDS ORDERED: LIDOCAINE MPF (2%) 20 MG/1 ML VIAL 5 ML ONE (11:44)
[2021-06-03] MEDS ORDERED: fentaNYL 100 MCG/2 ML INJ ONE (11:45)
[2021-06-03] MEDS ORDERED: propofoL 200 MG/20 ML VIAL IV ONE (11:45)
[2021-06-03] MEDS ORDERED: MIDAZOLAM 2 MG/2 ML INJ ONE (11:45)
[2021-06-03] MEDS ORDERED: ceFAZolin/Water 2 GM/20 ML 2 GM/20 ML SYRINGE IV ONE (12:24)
[2021-06-03] MEDS ORDERED: SODIUM CHLORIDE 0.9% IRRIG SOLN 2000 ML IR ONE ×2 (12:57)
[2021-06-03] MEDS ORDERED: methylPREDNISolone ACETATE 40 MG/1 ML INJ INTRA-ARTI ONE (12:57)
[2021-06-03] MEDS ORDERED: ONDANSETRON 4 MG/2 ML INJ IV PRN (13:04)
[2021-06-03] MEDS ORDERED: oxyCODONE /ACETAMINOPHEN 5-325MG TAB PO PRN (13:04)
[2021-06-03] MEDS ORDERED: LIDOCAINE 1%/EPINEPHRINE 1:100,000 VIAL (20 ML) INFILTRATI ONE ×2 (13:29→13:33)
[2021-06-03] MEDS ORDERED: dexAMETHasone 20 MG/5 ML VIAL ONE (13:36)
[2021-06-03] MEDS ORDERED: ONDANSETRON 4 MG/2 ML INJ ONE (13:36)
[2021-06-03] MEDS ORDERED: HYDROcodone/ACETAMINOPHEN 5-325 MG TAB ONE (13:56)
[2021-06-03] MEDS: HYDROmorphone 1 MG/1 ML INJ IV PRN ×2 (14:00→14:10)
--- NOTE | 2021-06-03 14:49 | Post Anesthesia Evaluation ---
- Post Anesthesia Evaluation Patient Participated: Yes Airway Patent: Yes Stable Respiratory Function: Yes Nausea/Vomiting: No Temp > 96.8F: Yes Pain Manageable: Yes Adequeate Hydration: Yes Anesthesia Complications: No
--- NOTE | 2021-06-03 15:20 | Operative Report ---
Operative Report Operative Report: Preop diagnosis : MEDIAL meniscus tear , left knee (with locked knee) Postop diagnosis: Medial meniscus tear bucket-handle type posterior horn, left knee Procedure: Surgical arthroscopy left knee with arthroscopic meniscal repair. Surgeon: Donte Urena MD Anesthesia: General with LMA Details of operative technique : The patient was prepared in the holding area for outpatient arthroscopic knee surgery. She was then brought to the operating room where she underwent satisfactory general anesthesia utilizing an LMA. She was placed on the operating table in the supine position and all pressure points were well- padded.The Left LE was placed in the leg lopez and the right leg was placed in the well leg positioner. The Left knee was then prepped and draped in the usual sterile fashion utilizing ChloraPrep solution. Prior to this the leg was elevated exsanguinated with an Esmarch bandage and the tourniquet was inflated to 300 mmHg. Timeout was then called by the circulating nurse and once again the correct site was identified. Arthroscopy was carried out through an anterolateral approach. The patient was noted to have what appeared to be a small amount of hemarthrosis and some bloodstained synovitis in the anterior compartment. On further investigation of the medial compartment there was found a posterior horn tear at the junction of the posterior and middle zones of the medial meniscus with mild instability and good elasticity and obviously was the culprit in causing this patient's locked knee. Remainder of the body and anterior horn of the medial meniscus was normal. The medial femoral condyle was normal except for a few partial delaminated areas and synovitis. Tibial plateau surface was pristine. The anterior and posterior cruciate ligaments were intact. The lateral compartment showed normal articular cartilage for the lateral femoral condyle, lateral meniscus and tibial plateau surface. Patellofemoral compartment showed normal articular surfaces with normal tracking and no loose bodies or chondromalacia. Attention was then turned back to the medial compartment. MEDIAL MENISCAL REPAIR : Once again inspecting the medial compartment and utilizing a soft tissue probe the medial meniscus was seen to be unstable therefore, a meniscal repair was decided. Utilizing the FasT-Fix meniscal repair system , 2 separate anchors were placed through the posterior horn tear in a horizontal mattress technique thereby securing the tear and creating a stable meniscal rim. The knot was cinched down tightly and cut with the device. The meniscus was again probed and was found to be quite stable. A small arthroscopic synovial shaver was utilized to remove the medial femoral condyle delaminated areas creating a smooth medial condyle surface and to remove the remaining synovitis in the compartment. The arthroscope was withdrawn and all fluid was removed from the knee with suction. Arthroscopic portals were then repaired with 2-0 undyed Vicryl suture. Steri- Strips were placed on the skin followed by an ABD pad and secured with an Ahsan wrap. The patient was then awakened and taken to recovery room in excellent condition. Estimated blood loss: Negligible Drains: None Complications: None Tourniquet time: 57 minutes
[2021-06-03] MEDS ORDERED: HYDROcodone/ACETAMINOPHEN 5-325 MG TAB PO ONE (15:23)
[2021-06-03 19:35] VITALS: BP 118/73
== END 2021-06-03 09:48 | disposition home or self-care (01) ==
LOC: OR 09:47
PROVIDERS: ATTEND Orthopaedic Surgery
DX: S83.242A Other tear of medial meniscus, current injury, left knee, initial encounter (principal); Z79.899 Other long term (current) drug therapy; Z98.890 Other specified postprocedural states; X58.XXXA Exposure to other specified factors, initial encounter; Y93.89 Activity, other specified; Y92.89 Other specified places as the place of occurrence of the external cause; Y99.8 Other external cause status
CPT/HCPCS: 29881; 81025; A4217; J0690; J1100; J1170; J2250; J2405; J2704; J3010; J7120; J1030

== ENCOUNTER 2021-07-01 05:40 | Day surgery (SDC) | payer OTHER ==
[2021-07-01] MEDS ORDERED: HYDROmorphone 1 MG/1 ML INJ IV PRN ×2 (11:11)
[2021-07-01] MEDS ORDERED: ONDANSETRON 4 MG/2 ML INJ IV PRN (11:11)
--- NOTE | 2021-07-01 11:12 | Anesthesia Day of Surgery ---
Anesthesia Day of Surgery - Day of Surgery Patient Examined: Yes Patient H&P Reviewed: Yes Patient is NPO: Yes
--- NOTE | 2021-07-01 11:13 | Anesthesia Consultation ---
Anesthesia Consult and Med Hx Date of service: 07/01/21 - Airway Anesthetic Teeth Evaluation: Good, Partials ROM Head & Neck: Adequate Mental/Hyoid Distance: Adequate Mallampati Class: Class II Intubation Access Assessment: Good - Pre-Operative Health Status ASA Pre-Surgery Classification: ASA1 Proposed Anesthetic Plan: General - Pulmonary Hx Smoking: No Hx Sleep Apnea: No (MILLI PRE SCREEN NEGATIVE) - Cardiovascular System Hx Hypertension: No - Central Nervous System Hx Psychiatric Problems: No - Endocrine Hx Hyperthyroidism: No - Hematic Hx Anemia: No - Other Systems Hx Cancer: No - Additional Comments Anesthesia Medical History Comments: Was here [id number]
[2021-07-01] MEDS ORDERED: LACTATED RINGERS 1,000 ML IV SCH (11:15)
[2021-07-01] MEDS ORDERED: ACETAMINOPHEN 500 MG TAB PO ONE (12:00)
[2021-07-01] MEDS ORDERED: MIDAZOLAM 2 MG/2 ML INJ IV NR (12:00)
[2021-07-01] MEDS ORDERED: CELECOXIB 200 MG CAP PO NR (12:00)
[2021-07-01] MEDS ORDERED: MAGNESIUM OXIDE 400 MG TAB PO ONE (12:00)
[2021-07-01] MEDS ORDERED: LIDOCAINE MPF (2%) 20 MG/1 ML VIAL 5 ML ONE (13:18)
[2021-07-01] MEDS ORDERED: ONDANSETRON 4 MG/2 ML INJ ONE (13:18)
[2021-07-01] MEDS ORDERED: fentaNYL 100 MCG/2 ML INJ ONE (13:19)
[2021-07-01] MEDS ORDERED: propofoL 200 MG/20 ML VIAL IV ONE (13:19)
[2021-07-01] MEDS ORDERED: TRIAMCINOLONE 40 MG/1 ML INJ ONE (13:29)
[2021-07-01] MEDS ORDERED: LIDOCAINE (1%) 10 MG/1 ML VIAL 20 ML MDV ONE (13:29)
[2021-07-01] MEDS ORDERED: TRIAMCINOLONE 40 MG/1 ML INJ IM ONE (13:40)
[2021-07-01] MEDS ORDERED: LIDOCAINE (1%) 10 MG/1 ML VIAL 20 ML MDV INFILTRATI ONE (13:40)
[2021-07-01] MEDS ORDERED: KETOROLAC 30 MG/1 ML INJ ONE (13:43)
--- NOTE | 2021-07-01 15:20 | Operative Report ---
Operative Report Operative Report: Preop diagnosis : 1.S/P arthroscopic medial meniscal repair, left knee 2. Residual flexion contracture, left knee Postop diagnosis: SAME Procedure: 1. Manipulation under anesthesia, left knee 2. Cortico-steroid injection, left knee 3. Application of extension knee brace Surgeon: Donte Urena MD Anesthesia: MAC Details of operative technique: The patient was brought to the operating room from the holding area. She was placed in the supine position and underwent MAC anesthesia. The left knee showed a flexion contracture of approximately 50 to 55 degrees. While placing downward pressure on the distal femur, the left leg was fully extended whereupon audible and palpable adhesions were felt to be lysed. Full extension was obtained without difficulty. Knee was taken through a full range of motion from 0 to 130 degrees flexion with multiple reps. Following this, lateral joint line was prepped with alcohol and ChloraPrep solution. Triamcinolone 40 mg and lidocaine 1%, 3 cc was injected through the lateral arthroscopic scar. The knee was taken through a full range of motion x10 repetitions. A DonJoy knee orthosis was then placed on the left leg and thigh with the knee in full extension and locked in place. Patient was then awakened and taken to recovery room in excellent condition. Estimated blood loss: NA Drains: NA Complications: None Tourniquet time: NA
--- NOTE | 2021-07-01 16:58 | Post Anesthesia Evaluation ---
- Post Anesthesia Evaluation Patient Participated: Yes Airway Patent: Yes Stable Respiratory Function: Yes Nausea/Vomiting: No Temp > 96.8F: Yes Pain Manageable: Yes Adequeate Hydration: Yes Anesthesia Complications: No Block Receding Appropriately: Not Applicable Patient on Ventilator: No
[2021-07-02 02:05] VITALS: BP 139/79
== END 2021-07-01 16:00 | disposition home or self-care (01) ==
LOC: OR 05:40
PROVIDERS: ATTEND Orthopaedic Surgery
DX: M24.532 Contracture, left wrist (principal); Z20.822 Contact with and (suspected) exposure to COVID-19; Z79.899 Other long term (current) drug therapy; Z98.890 Other specified postprocedural states
CPT/HCPCS: 27570; 36415; 84703; J1170; J1885; J2250; J2405; J2704; J3010; J3301; J7120; U0003

== ENCOUNTER 2021-12-23 12:27 | Emergency (ER) | payer OTHER ==
[2021-12-23 14:09] VITALS: BP 114/77
== END 2021-12-23 18:00 | disposition left against medical advice (07) ==
LOC: ED 12:27
DX: R10.9 Unspecified abdominal pain (principal); Z53.21 Procedure and treatment not carried out due to patient leaving prior to being seen by health care provider

== ENCOUNTER 2022-05-24 18:10 | Emergency (ER) | payer OTHER ==
[2022-05-24] MEDS ORDERED: HYOSCYAMINE SUBL 0.125 MG TAB SL ONE (21:05)
[2022-05-24] MEDS ORDERED: ONDANSETRON 4 MG ODT TAB PO STA (21:05)
[2022-05-24 21:27] LABS: Basophils % (Auto) 0.2 % (0.0-1.8); Eosinophils # (Auto) 0.1 K/mm3 (0.0-0.4); Eosinophils % (Auto) 0.9 % (0.0-4.3); Hematocrit 38.5 % (30.3-42.9); Hemoglobin 13.3 gm/dl (10.1-14.3); Lymphocytes # (Auto) 2.1 K/mm3 (1.2-5.4); Lymphocytes % (Auto) 32.3 % (13.4-35.0); Mean Corpuscular HGB Conc 35 % (30-34); Mean Corpuscular Volume 95 fl (79-97); Monocytes # (Auto) 0.3 K/mm3 (0.0-0.8); Monocytes % (Auto) 4.3 % (0.0-7.3); Platelet Count 255 K/mm3 (140-440); Red Blood Count 4.07 M/mm3 (3.65-5.03); Red Cell Distribution Width 13.4 % (13.2-15.2)
[2022-05-24 21:46] LABS: Alanine Aminotransferase 16 units/L (7-56); Albumin 4.6 g/dL (3.9-5); Blood Urea Nitrogen 8 mg/dL (7-17); Calcium 8.8 mg/dL (8.4-10.2); Hemolysis Index 11
[2022-05-24 21:47] LABS: BUN/Creatinine Ratio 16; Bilirubin,Direct < 0.2 mg/dL (0-0.2)
--- NOTE | 2022-05-24 23:11 | Emergency Department Report ---
<VARSHACLEMENTINE - Last Filed: 05/24/22 23:02> ED N/V/D HPI - General Chief complaint: Abdominal Pain Stated complaint: ABD PAIN Time Seen by Provider: 05/24/22 20:50 Source: patient Mode of arrival: Ambulatory Limitations: No Limitations - History of Present Illness MD complaint: nausea, vomiting, diarrhea -: Gradual Description of Vomiting: food contents, watery Associated Abdominal Pain: Yes Location: LLQ (Mild) Radiation: none Severity: mild Consistency: constant Improves with: none Worsens with: none Context: possible food poisoning Associated Symptoms: denies other symptoms, nausea/vomiting. denies: chest pain, cough, diaphoresis, fever/chills, loss of appetite, malaise, dysuria, shortness of breath, syncope, weakness - Related Data Home Medications Medication Instructions Recorded Confirmed Last Taken Ibuprofen [Motrin] 800 mg PO Q8HR PRN 05/30/21 06/29/21 Unknown HYDROcodone/APAP 7.5-325 [Hercules 1 each PO Q6HR PRN 06/29/21 06/29/21 Unknown 7.5/325] Previous Rx's Medication Instructions Recorded Last Taken Type Hyoscyamine Subl [Levsin Sl 0.125 0.125 mg SL Q6HR PRN #20 tab 05/24/22 Unknown Rx TAB] Ondansetron [Zofran ODT TAB] 8 mg PO Q12HR #14 tab.rapdis 05/24/22 Unknown Rx Allergies Allergy/AdvReac Type Severity Reaction Status Date / Time No Known Allergies Allergy Verified 02/26/21 19:44 ED Review of Systems Comment: All other systems reviewed and negative ED Past Medical Hx - Past Medical History Previous Medical History?: No Hx Hypertension: No Additional medical history: vaginal delivery 03-29-2014 - Surgical History Additional Surgical History: Fallopian Tube Left Side Removal. - Social History Smoking Status: Never Smoker - Medications Home Medications: Home Medications Medication Instructions Recorded Confirmed Last Taken Type Ibuprofen [Motrin] 800 mg PO Q8HR PRN 05/30/21 06/29/21 Unknown History HYDROcodone/APAP 7.5-325 [Hercules 1 each PO Q6HR PRN 06/29/21 06/29/21 Unknown History 7.5/325] Hyoscyamine Subl [Levsin Sl 0.125 0.125 mg SL Q6HR PRN #20 tab 05/24/22 Unknown Rx TAB] Ondansetron [Zofran ODT TAB] 8 mg PO Q12HR #14 tab.rapdis 05/24/22 Unknown Rx ED Physical Exam - General Limitations: No Limitations General appearance: alert, in no apparent distress - Head Head exam: Present: atraumatic, normocephalic - Eye Eye exam: Present: normal appearance, PERRL, EOMI Pupils: Present: normal accommodation - ENT ENT exam: Present: normal exam, normal orophraynx, mucous membranes moist, TM's normal bilaterally - Neck Neck exam: Present: normal inspection, full ROM - Respiratory Respiratory exam: Present: normal lung sounds bilaterally. Absent: respiratory distress - Cardiovascular Cardiovascular Exam: Present: regular rate, normal rhythm. Absent: systolic murmur, diastolic murmur, rubs, gallop - GI/Abdominal GI/Abdominal exam: Present: soft, normal bowel sounds - Extremities Exam Extremities exam: Present: normal inspection, full ROM, normal capillary refill - Back Exam Back exam: Present: normal inspection. Absent: CVA tenderness (R), CVA tenderness (L) - Neurological Exam Neurological exam: Present: alert, oriented X3, CN II-XII intact - Psychiatric Psychiatric exam: Present: normal affect, normal mood - Skin Skin exam: Present: warm, dry, intact, normal color. Absent: rash, diaphoretic ED Medical Decision Making - Lab Data Result diagrams: 05/24/22 21:01 05/24/22 21:01 ED Disposition Clinical Impression: Gastroenteritis Disposition: HOME / SELF CARE / HOMELESS Is pt being admited?: No Does the pt Need Aspirin: No Condition: Stable Instructions: Viral Gastroenteritis, Adult, Food Choices to Help Relieve Diarrhea, Adult, Colitis, Abdominal Pain (ED) Prescriptions: Hyoscyamine Subl [Levsin Sl 0.125 TAB] 0.125 mg SL Q6HR PRN #20 tab PRN Reason: abdominal cramps and spasms Ondansetron [Zofran ODT TAB] 8 mg PO Q12HR #14 tab.rapdis Referrals: HERVE PIERRE MD [Primary Care Provider] - 3-5 Days Forms: Work/School Release Form(ED) <FRED FREEMAN - Last Filed: 05/25/22 00:31> ED Review of Systems ROS: Stated complaint: ABD PAIN Other details as noted in HPI ED Course Vital Signs 05/24/22 19:17 Temperature 99.5 F Pulse Rate 97 H Respiratory 16 Rate Blood Pressure 135/72 [Right] O2 Sat by Pulse 100 Oximetry ED Medical Decision Making - Lab Data Result diagrams: 05/24/22 21:01 05/24/22 21:01 - Medical Decision Making This patient was seen independently by the midlevel provider. I was available for consult however I was not involved in the decision making or the disposition of this patient. Fred Freeman Critical care attestation.: If time is entered above; I have spent that time in minutes in the direct care of this critically ill patient, excluding procedure time. ED Disposition Is pt being admited?: No
[2022-05-25 00:43] VITALS: BP 139/81
== END 2022-05-25 00:43 | disposition home or self-care (01) ==
LOC: ED 18:10
DX: K52.9 Noninfective gastroenteritis and colitis, unspecified (principal)
CPT/HCPCS: 36415; 80048; 80076; 83690; 84703; 85025; 99283; J3490; Q0162